=== PATIENT | male | born 2000 | race Caucasian/White ===

== ENCOUNTER 2023-09-27 16:07 | Emergency (ER) | payer MEDICAID ==
[~2023-09-27] VITALS: Ht 167.6 cm; Wt 65.8 kg
[2023-09-27] MEDS ORDERED: HYDROCODONE/APAP 5/325MG TABLET ONE (17:03)
[2023-09-27] MEDS ORDERED: IBUPROFEN 600 MG TABLET ONE (17:03)
[2023-09-27] MEDS: IBUPROFEN 600 MG TABLET PO ONE (17:05)
[2023-09-27] MEDS ORDERED: HYDR-4303 PO (17:05)
[2023-09-27] MEDS ORDERED: IBUP-1953 PO (17:05)
[2023-09-27] MEDS: HYDROCODONE/APAP 5/325MG TABLET PO ONE (17:06)
[2023-09-27 17:36] VITALS: BP 148/99; TEMP 98.8; O2SAT 99
== END 2023-09-27 17:38 | disposition home or self-care (01) ==
LOC: ER 16:33
DX: S42.002A Fracture of unspecified part of left clavicle, initial encounter for closed fracture (principal); W52.XXXA Crushed, pushed or stepped on by crowd or human stampede, initial encounter; Y93.66 Activity, soccer; Y92.89 Other specified places as the place of occurrence of the external cause; Y99.8 Other external cause status
CPT/HCPCS: 73000-TC